=== PATIENT | male | born 1990 | race Two or more races ===

== ENCOUNTER 2017-06-29 02:00 | Emergency (ER) | payer OTHER ==
[~2017-06-29] VITALS: Ht 172.7 cm; Wt 95.3 kg
--- NOTE | 2017-06-29 02:15 | NUR ---
TO BED 7 A 27 YO MALE BIBSELF FOR BILAT EYE IRRITATION SINCE 129 TODAY, DENIES TRAUMA. VSS. COMFORT MEASURES RENDERED. VISUAL ACUITY CHECK DONE. AWAITING FOR ER MD APODACA.
[2017-06-29] MEDS ORDERED: FLUORESCEIN SODIUM OPHTH 1 EA STRIP ONE (02:28)
[2017-06-29] MEDS ORDERED: TETRACAINE HCL/PF 0.5% UD 2 ML BOTTLE ONE (02:29)
--- NOTE | 2017-06-29 02:35 | NUR ---
tetracaine opht and fluorescein given to Dr Estes.
--- NOTE | 2017-06-29 02:39 | NUR ---
Dr Estes at bedside for eval.
--- NOTE | 2017-06-29 02:52 | NUR ---
Patient discharged to home in stable condition. Written and verbal after care instructions given. Patient verbalizes understanding of instruction. Patient is ambulatory with a steady gait, no further complaints.
[2017-06-29 02:53] VITALS: BP 128/69
== END 2017-06-29 02:53 | disposition home or self-care (01) ==
LOC: ER 02:04
DX: S05.02XA Injury of conjunctiva and corneal abrasion without foreign body, left eye, initial encounter (principal); S05.01XA Injury of conjunctiva and corneal abrasion without foreign body, right eye, initial encounter; H18.21 Corneal edema secondary to contact lens; X58.XXXA Exposure to other specified factors, initial encounter; Y93.89 Activity, other specified; Y92.89 Other specified places as the place of occurrence of the external cause; Y99.9 Unspecified external cause status
CPT/HCPCS: A4606; Z7610

== ENCOUNTER 2023-06-06 00:56 | Emergency (ER) | payer BC, OTHER ==
[~2023-06-06] VITALS: Ht 172.7 cm; Wt 136.1 kg
[2023-06-06 01:45] VITALS: TEMP 98.1
--- NOTE | 2023-06-06 01:51 | NUR ---
Pt AOx4, able to express his concerns. Patient states he had a headache at home, checked BP and it was high 150/90. Pt staes he has not been to PCP in over 1 year, not sure if he has a HBP diagnosis. Discussed plan of care, pt verbalized agreement.
[2023-06-06] MEDS ORDERED: LORAZEPAM 1 MG TABLET PO ONE (02:00)
[2023-06-06] MEDS ORDERED: LORAZEPAM 1 MG TABLET ONE (02:00)
[2023-06-06 02:51] LABS: BASOPHILS % (AUTO) 0.3 % (0.0-2.0); EOSINOPHILS % (AUTO) 0.8 % (0.0-6.0); HEMATOCRIT 43 % (39-51); HEMOGLOBIN 13.8 g/dL (13.5-17.5); LYMPHOCYTES # (AUTO) 2.9 K/uL (0.8-4.8); LYMPHOCYTES % (AUTO) 21.8 % (20.0-44.0); MEAN CORPUSCULAR HGB CONC 32 g/dl (31.0-36.0); MEAN CORPUSCULAR VOLUME 80 fL (80-96); MONOCYTES # (AUTO) 0.6 K/uL (0.1-1.30); MONOCYTES % (AUTO) 4.3 % (2.0-12.0); NEUTROPHILS # (AUTO) 9.8 K/uL (1.8-8.9); NEUTROPHILS % (AUTO) 72.8 % (43.0-81.0); PLATELET COUNT (AUTO) 418 K/uL (150-450); RED BLOOD CELL COUNT(AUTO) 5.35 MIL/uL (4.5-6.0); WHITE BLOOD COUNT (AUTO) 13.5 K/uL (4.3-11.0)
[2023-06-06 03:09] LABS: CALCIUM, SERUM 9.4 mg/dL (8.5-10.1); CREATININE 0.9 mg/dL (0.6-1.3); POTASSIUM 3.7 mmol/L (3.5-5.1)
[2023-06-06 03:40] VITALS: BP 130/74
--- NOTE | 2023-06-06 03:42 | NUR ---
Discussed plan of care with pt and , verbalized agreement. Patient states he will follow up with [facility] primary care provider.
== END 2023-06-06 03:43 | disposition home or self-care (01) ==
LOC: ER 00:58
DX: I10 Essential (primary) hypertension (principal); R00.2 Palpitations
CPT/HCPCS: 36415; 80048-TC; 84484-TC; 85025-TC